=== PATIENT | female | born 1985 | race Caucasian/White ===

== ENCOUNTER 2021-03-30 15:16 | Emergency (ER) | payer BC ==
[~2021-03-30] VITALS: Ht 160 cm; Wt 82.6 kg
[2021-03-30 15:20] VITALS: BP 128/82
[2021-03-30] MEDS ORDERED: AMITRIPTYLINE H25 M3 PO (15:28)
== END 2021-03-30 18:11 | disposition left against medical advice (07) ==
LOC: M.ERS 15:16
DX: R07.89 Other chest pain (principal); R10.9 Unspecified abdominal pain; R20.0 Anesthesia of skin; Z53.21 Procedure and treatment not carried out due to patient leaving prior to being seen by health care provider